=== PATIENT | male | born 1935 | race African-American/Black ===

== ENCOUNTER 2019-10-20 13:45 | Emergency (ER) | payer MEDICARE, BC ==
[~2019-10-20] VITALS: Ht 170.2 cm; Wt 82.0 kg
[2019-10-20] MEDS ORDERED: LIDOCAINE HCL 1% 20ML VIAL (Pyxis) INJ INFIL ONE (14:45)
[2019-10-20] MEDS ORDERED: TETANUS, DIPHTHERIA, PERTUSSIS VAC/PF 0.5ML (>7YR OLD) IM ONE (14:45)
[2019-10-20 15:59] VITALS: BP 140/70
== END 2019-10-20 16:06 | disposition home or self-care (01) ==
LOC: ER 13:45
DX: S61.411A Laceration without foreign body of right hand, initial encounter (principal); V18.0XXA Pedal cycle driver injured in noncollision transport accident in nontraffic accident, initial encounter; Y93.55 Activity, bike riding; Y92.488 Other paved roadways as the place of occurrence of the external cause; I10 Essential (primary) hypertension; E78.00 Pure hypercholesterolemia, unspecified; Z23 Encounter for immunization
CPT/HCPCS: 12002; 73130; 90471; 90715; 99283; J3490

== ENCOUNTER 2019-10-27 09:56 | Emergency (ER) | payer MEDICARE, BC ==
[~2019-10-27] VITALS: Ht 172.7 cm; Wt 82.0 kg
[2019-10-27 10:24] VITALS: BP 131/73
[2019-10-27] MEDS ORDERED: BACITRACIN ZINC OINT UDPKT TOP ONE (11:45)
== END 2019-10-27 11:51 | disposition home or self-care (01) ==
LOC: ER 09:56
DX: Z48.02 Encounter for removal of sutures (principal); I10 Essential (primary) hypertension
CPT/HCPCS: 99282